=== PATIENT | female | born 1985 | race Caucasian/White ===

== ENCOUNTER 2022-03-15 05:53 | Inpatient (IN) | payer OTHER ==
[2022-03-15] VITALS (36 sets, daily range): BP systolic 102–167; BP diastolic 58–103; PULSE 71–100; TEMP 98–98.8
[~2022-03-15] VITALS: Ht 160 cm; Wt 88.6 kg
[~2022-03-15 05:53] MED LIST: PRENATAL1 TA1 PO
[2022-03-15 07:20] LABS: BASO # 0.1 K/mm3 (0.0-0.2); BASO % 0.6 % (0.0-2.0); EOS # 0.1 K/mm3 (0.0-0.7); EOS % 1.2 % (0.0-4.0); GRAN # 6.5 K/mm3 (1.4-6.5); GRAN % 73.7 % (42.2-75.2); HEMOGLOBIN 10.9 g/dl (12.5-16.0); LYMPH # 1.5 K/mm3 (1.2-3.4); LYMPH % 17.2 % (20.0-51.0); MEAN CELL VOLUME 91 fl (80.0-100.0); MEAN CORPUSCULAR HEMOGLOBIN 31 pg (27-31); MEAN CORPUSCULAR HGB CONC 35 g/dl (33.0-37.0); MONO # 0.6 K/mm3 (0.1-0.6); MONO % 6.4 % (1.7-9.3); PLATELET COUNT 186 K/mm3 (130-400); RED BLOOD COUNT 3.48 M/mm3 (4.10-5.30); REDCELL DISTRIBUTION WIDTH-CV 13.9 % (11.5-14.5)
[2022-03-15 07:21] LABS: HEMATOCRIT 31.5 % (37.0-47.0)
--- NOTE | 2022-03-15 10:26 | NUR ---
0942-PT SITTING FOR EPIDURAL. RN AT BEDSIDE. RN UNABLE TO CONTINOUSLY MONITOR FHR. IV BOLUS GIVEN, PULSE OX ON, TIMEOUT COMPLETE. 0953-TEST DOSE GIVEN BY ANESTHESIA.
--- NOTE | 2022-03-15 15:44 | NUR ---
1445-PT PUSHING WITH CONTRACTIONS. Jg LEWIS RN, DR. COSTA, AND NURSERY IN ROOM. RN AT BEDSIDE CONTINOUSLY MONITORING CONTRACTIONS.
[2022-03-16 01:00] VITALS: BP 150/88; PULSE 89; TEMP 97.8
[2022-03-16 07:53] VITALS: BP 139/89; PULSE 84; TEMP 97.7
[2022-03-16] MEDS ORDERED: MOTRIN 800800 MG/TAB PO (08:07)
[2022-03-16] MEDS ORDERED: PERCOCET 325 MG1 TA2 PO (08:07)
--- NOTE | 2022-03-16 09:42 | NUR ---
Initial visit; Parents thanked Gr[employer] Machine Knife Setter for offering congratulations and God's blessings for the of their daughter. Grinder Machine Knife Setter thanked family for choosing [place].
[2022-03-16 13:30] VITALS: BP 137/91; PULSE 84; TEMP 97.5
== END 2022-03-16 17:00 | disposition home or self-care (01) | DRG 807 ==
LOC: LDR 05:53 → OB 05:53 → LDR 14:44 → OB 18:00
PROVIDERS: ADMIT Obstetrics & Gynecology
PROC: 10E0XZZ Delivery of Products of Conception, External Approach (ICD-10-PCS; principal; 2022-03-15)
PROC: 0KQM0ZZ Repair Perineum Muscle, Open Approach (ICD-10-PCS; 2022-03-15)
PROC: 3E033VJ Introduction of Other Hormone into Peripheral Vein, Percutaneous Approach (ICD-10-PCS; 2022-03-15)
PROC: 10907ZC Drainage of Amniotic Fluid, Therapeutic from Products of Conception, Via Natural or Artificial Opening (ICD-10-PCS; 2022-03-15)
DX: O99.824 Streptococcus B carrier state complicating childbirth (principal); Z37.0 Single live birth; O69.81X0 Labor and delivery complicated by cord around neck, without compression, not applicable or unspecified; O70.1 Second degree perineal laceration during delivery; Z3A.39 39 weeks gestation of pregnancy
CPT/HCPCS: J2540; J2590; J7120